=== PATIENT | male | born 1945 | race Caucasian/White ===

== ENCOUNTER → 2018-07-23 07:58 | Outpatient (CLI) | payer OTHER, SELFPAY ==
[2018-07-23 08:56] LABS: Cholesterol 184 mg/dL (140-199); HDL Cholesterol 47 mg/dL (40-60); LDL Cholesterol Calculated 116 mg/dL (<100); Triglycerides 103 mg/dL (35-150)
[2018-07-23 09:28] LABS: Prostate Specific Antigen < 0.064 ng/mL (0.10-4.00)
[2018-07-23 09:34] LABS: Thyroid Stimulating Hormone 2.36 uIU/mL (0.47-4.68)
== END ==
PROVIDERS: PCP Family Medicine; Visit Provider Family Medicine
DX: E78.5 Hyperlipidemia, unspecified (principal); E03.9 Hypothyroidism, unspecified; C61 Malignant neoplasm of prostate
CPT/HCPCS: 36415; 80061; 84153; 84443

== ENCOUNTER → 2019-06-08 09:26 | Outpatient (CLI) | payer OTHER, SELFPAY ==
[2019-06-08 10:05] LABS: Add Manual Diff / Slide Review NO; Basophils Absolute Auto 0 /uL (0-100); Basophils Percent Auto 0.5 % (0-2); Eosinophils Absolute Auto 200 /uL (0-450); Eosinophils Percent Auto 2.6 % (2-4); Hemoglobin 14.3 g/dL (13.5-17.5); Lymphocytes Absolute Auto 2100 /uL (1100-4500); Lymphocytes Percent Auto 31.8 % (25-40); Mean Corpuscular HGB Conc 33.3 % (30-36); Mean Corpuscular Hemoglobin 29.3 PG (26-34); Mean Corpuscular Volume 87.9 fL (80-100); Monocytes Absolute Auto 500 /uL (0-900); Monocytes Percent Auto 7.7 % (3-14); Neutrophils Absolute Auto 3800 /uL (1500-7000); Neutrophils Percent Auto 57.4 % (50-75); Platelet Count 278 X10^3/uL (150-400); Red Cell Distribution Width 18.1 % (11.6-14.8); White Blood Cell Count 6.7 X10^3/uL (4.5-11.0)
[2019-06-08 10:29] LABS: Alanine Aminotransferase 22 IU/L (21-72); Albumin 4.5 g/dL (3.5-5.0); Albumin Globulin Ratio 1.6 (1.0-2.8); Alkaline Phosphatase 79 U/L (38-126); Aspartate Aminotransferase 24 IU/L (17-59); Bilirubin Total 0.5 mg/dL (0.2-1.3); Blood Urea Nitrogen 18 mg/dL (9-20); Calcium 10.1 mg/dL (8.4-10.2); Carbon Dioxide 29 mmol/L (22-32); Chloride 101 mmol/L (98-107); Estimated Glomerular Filt Rate > 60.0 mL/min (>60); Globulin 2.9 g/dL (1.7-4.1); Glucose 106 mg/dL (80-110); HEMOLYSIS < 15 (0-50); Potassium 4.2 mmol/L (3.4-5.1); Sodium 140 mmol/L (137-145); Total Protein 7.4 g/dL (6.3-8.2)
[2019-06-10 17:02] LABS: PSA Post Prostatectomy <0.02 ng/mL
== END ==
PROVIDERS: PCP Family Medicine; Visit Provider Family Medicine
DX: R53.83 Other fatigue (principal); Z85.46 Personal history of malignant neoplasm of prostate
CPT/HCPCS: 36415; 80053; 84153; 85025

== ENCOUNTER → 2019-07-26 07:47 | Outpatient (CLI) | payer OTHER, SELFPAY ==
[2019-07-26 09:12] LABS: Alanine Aminotransferase 26 IU/L (21-72); Albumin 4.6 g/dL (3.5-5.0); Albumin Globulin Ratio 1.4 (1.0-2.8); Alkaline Phosphatase 70 U/L (38-126); Aspartate Aminotransferase 36 IU/L (17-59); BUN Creatinine Ratio 17.8 (6-22); Bilirubin Total 0.6 mg/dL (0.2-1.3); Blood Urea Nitrogen 16 mg/dL (9-20); Calcium 9.8 mg/dL (8.4-10.2); Carbon Dioxide 32 mmol/L (22-32); Chloride 100 mmol/L (98-107); Cholesterol 181 mg/dL (140-199); Estimated Glomerular Filt Rate > 60.0 mL/min (>60); Globulin 3.4 g/dL (1.7-4.1); Glucose 101 mg/dL (80-110); HDL Cholesterol 45 mg/dL (40-60); HEMOLYSIS < 15 (0-50); LDL Cholesterol Calculated 110 mg/dL (<100); Potassium 4.3 mmol/L (3.4-5.1); Sodium 141 mmol/L (137-145); Triglycerides 128 mg/dL (35-150)
== END ==
PROVIDERS: PCP Family Medicine; Visit Provider Family Medicine
DX: E78.5 Hyperlipidemia, unspecified (principal)
CPT/HCPCS: 36415; 80053; 80061

== ENCOUNTER 2019-08-15 12:00 | Day surgery (SDC) | payer MEDICARE, OTHER, SELFPAY ==
[2019-08-15] VITALS (10 sets, daily range): BP systolic 133–157; BP diastolic 88–113; PULSE 62–76; RESP 8–16; TEMP 36.6–37.1; O2SAT 95–100; BMI 30.6
[2019-08-15] MEDS: SODIUM CHLORIDE 0.9% 1,000 ML 200 ML IV (12:38)
--- NOTE | 2019-08-15 12:46 | PM.HP.1 ---
History of Present Illness History of Present Illness Date Patient Seen: 08/15/19 Time Patient Seen: 12:47 Chief complaint: [id number] SCREENING COLONOSCOPY Narrative: This is a 74-year-old man here for screening colonoscopy. His prior colonoscopy was over 5 years ago, and he was instructed by his primary doctor to have a repeat colonoscopy at this time. I do not have the record from his prior colonoscopy, but it sounds like he had polyps found on his prior procedure. He denies any current symptoms of rectal bleeding or melena, but he has chronic constipation. He is otherwise well and denies any chest pain, or shortness of breath, or other acute symptoms. Patient History Medical History Anemia (Chronic 2011) Ankle pain (Chronic 1966) Depression (Chronic 1969) Elevated PSA (Resolved 2014) Hemorrhoids (Resolved 1989) Hypothyroidism (Chronic 1994) Prostate cancer (Chronic 2014) Sleep apnea (Chronic 1989) Surgical History Anesthesia (Resolved) No history of previous surgery (Resolved) Family History Brother Colorectal cancer Brother No problems noted. Father No problems noted. Mother Emphysema lung Sister No problems noted. Sister No problems noted. Social History household members: spouse Smoking Status: Never smoker Family & Social History Family History Brother Colorectal cancer Brother No problems noted. Father No problems noted. Mother Emphysema lung Sister No problems noted. Sister No problems noted. Social History: household members spouse Tobacco & Substance use: Smoking Status Never smoker Meds Home Medications and Allergies Home Medications Medication Instructions Recorded Confirmed Type multivitamin [Multiple Vitamins] 1 tab PO QDAY #0 02/17/17 08/15/19 History lisinopril 20 mg tablet 20 mg PO DAILY #90 tab 05/30/19 08/15/19 Rx rosuvastatin 20 mg tablet 20 mg PO DAILY #90 tab 05/30/19 08/15/19 Rx duloxetine 60 mg capsule,delayed 60 mg PO DAILY #14 cap 08/07/19 08/15/19 Rx release levothyroxine 100 mcg tablet 100 mcg PO QAM #90 tab 08/07/19 08/15/19 Rx aripiprazole 2 mg PO DAILY 08/15/19 08/15/19 History Allergies Allergy/AdvReac Type Severity Reaction Status Date / Time No Known Allergies Allergy Verified 08/15/19 12:18 Review of Systems Review of Systems Narrative: All systems reviewed and otherwise unremarkable except as noted in HPI Exam Vital Signs (past 8 hours): - 08/15/19 12:35 Temperature 97.8 F Pulse Rate 62 Respiratory Rate 12 Blood Pressure 157/88 H Pulse Oximetry 95 Oxygen Delivery Method Room Air Narrative Exam Narrative: GENERAL: Well groomed and cooperative. Appears stated age. Answers questions promptly and appropriately. Vital signs noted. HENT: Normocephalic, atraumatic. Hearing intact. Oral mucosa is pink and moist. EYES: Conjunctiva pink, sclera white, no periorbital swelling. CARDIOVASCULAR: Regular rate. No pedal edema. RESPIRATORY: Normal respiratory rate, breathing comfortably on room air. GASTROINTESTINAL: Abdomen soft and non-distended MUSCULOSKELETAL: Normal coordination. Equal tone and mass bilaterally. SKIN: Warm, dry, soft, appropriate color for ethnicity. No other lesions, rashes, or wounds. NEURO: Alert and Oriented X 3. Good coordination. No gross sensory deficits, or cognitive issues. PSYCH: Appropriate affect and mood. Assessment & Plan Assessment and plan (1) Constipation: Current visit: Yes Status: Acute (2) Abnormal colonoscopy: Current visit: Yes Status: Acute Assessment & Plan narrative: Patient is here for a surveillance colonoscopy. He was instructed by his primary doctor to come in for follow-up colonoscopy as it has been more than 5 years since his prior scope, which was apparently abnormal. Risks and benefits of the procedure were described to the patient, including risk of bleeding and perforation, need for additional procedures. Patient desires to proceed with colonoscopy. Plan: Colonoscopy with possible biopsy Quality VTE Deep Vein Thrombosis/Pulmonary Embolism Present on Admission: No
[2019-08-15] MEDS: SILVER NITRATE STICK 2 EACH TOP (13:56)
[2019-08-15] MEDS: fentaNYL 250 MCG/5 ML INJ IV (13:57)
--- NOTE | 2019-08-15 13:58 | PM.OP.ENDO ---
Operative Date/Time/Diagnoses Date of procedure: 08/15/19 Time of procedure: 13:58 Pre-op diagnosis: constipation, history of abnormal colonoscopy Post-op diagnosis: other (Large internal/external hemorrhoids; tortuous colon) Procedure & Clinicians Study performed: Colonoscopy to splenic flexure; hemostasis of internal/external hemorrohids with silver nitrate Same procedure as scheduled: Yes Indications: Patient with history of colonoscopy over five years ago, recommended by PCP to have repeat colonoscopy at this time. I do not have a note from his prior procedure. Surgeon: Ngoc Cruz Procedure Notes SCOAP/Timeout: performed Procedure in detail: Patient brought to the room and placed in left lateral decubitus position with all bony prominences padded. A time-out was performed and then the patient has been under sedation starting with 4 mg of Versed and 100 mg of fentanyl. Vitals were monitored throughout the procedure and remained stable. Once adequately sedated the procedure was begun a rectal exam was performed revealing internal and external hemorrhoids. The colonoscope was then introduced to the rectum and advanced to the hepatic flexure. The the colon was tortuous and floppy, and I was unable to get all the way to the cecum even though I advanced the scope all the way to the Hilt. The patient had difficulty tolerating the procedure,l even with 14mg of Versed and 400 mcg of fentanyl. The scope was then retracted in the usual fashion rotating side to side and examining each mucosal fold. At the conclusion procedure retroflexion was performed large grade 2-3 internal and external hemorrhoids with active bleeding was seen. The hemorrhoids were very large were confluent including internal and external circumferential anoderm. I took a look with a lighted anoscope, but there was really no appropriate role for banding, as this patient needs a surgical hemorrhoidectomy. I was able to achieve hemostasis using silver nitrate. I placed a large rolled Gelfoam covered with Nupercaine inside the rectum. Following that the scope was withdrawn from the rectum the procedure was concluded the patient tolerated the procedure well was transferred to the PACU in stable condition. Scope withdrawal time: 18 Sedation minutes: 56 (Total sedation given 14 mg of Versed, 400 micrograms of fentanyl) Findings: internal hemorrhoids Specimen(s): none sent Impression: Floppy tortuous colon, large internal/external circumferential hemorrhoids which bled during the procedure. Patient will need colonoscopy with with monitored anesthesia care by anesthesiologist, or general anesthesia in order to tolerate the procedure. Post-procedure Plan for aftercare: Repeat colonoscopy after hemorrhoids have been treated. Follow up: weeks (Follow-up in 2 weeks in the office to discuss hemorrhoid surgery.) Disposition: PACU
[2019-08-15] MEDS: MIDAZOLAM 5 MG/5 ML VIAL IV (13:59)
[2019-08-15] MEDS: DIBUCAINE 1% OINT 28 GM 1 APPLIC TOP (13:59)
--- NOTE | 2019-08-15 14:03 | SUR.OPER ---
Hemorrhoid banding set used as a light source only, no bands used.
--- NOTE | 2019-08-15 14:37 | SUR.PHASEII ---
patient arrived in PACU very somnolent, but arouses to loud voice. Denies nausea/pain. No bleeding from rectum.
--- NOTE | 2019-08-15 14:52 | SUR.PHASEII ---
Call light given, continuous pulse oximeter given. Pt very drowsy, arouses easily.
--- NOTE | 2019-08-15 15:52 | SUR.PHASEII ---
Dr. Cruz talking w/patient & spouse. Pt sitting up, talking, has maintained sat in mid to upper 90s throughout OPD stay w/o continuous pulse ox alarm. Taking fluids well.
--- NOTE | 2019-08-15 16:32 | SUR.PHASEII ---
1618 Stable upon discharge, no dizziness, light-headedness, able to move freely. Instructions reviewed as well as given by dr. Dunaway questions.
== END 2019-08-15 16:18 | disposition home or self-care (01) ==
PROVIDERS: Family Provider Family Medicine; PCP Family Medicine; Visit Provider Surgery
PROC: 0DJD8ZZ Inspection of Lower Intestinal Tract, Via Natural or Artificial Opening Endoscopic (ICD-10-PCS; CPT 45378; principal; 2019-08-15 13:00)
DX: Z12.11 Encounter for screening for malignant neoplasm of colon (principal); Z53.09 Procedure and treatment not carried out because of other contraindication; K64.1 Second degree hemorrhoids; K64.9 Unspecified hemorrhoids
CPT/HCPCS: 46614; G0121; J2250; J3010

== ENCOUNTER → 2019-10-11 11:14 | Outpatient (CLI) | payer MEDICARE, OTHER, SELFPAY ==
[2019-10-11 13:00] LABS: Thyroid Stimulating Hormone 0.95 uIU/mL (0.47-4.68)
== END ==
PROVIDERS: PCP Family Medicine; Visit Provider Family Medicine
DX: E03.9 Hypothyroidism, unspecified (principal)
CPT/HCPCS: 36415; 84443

== ENCOUNTER → 2021-04-18 10:32 | Outpatient (CLI) | payer MEDICARE, OTHER, SELFPAY ==
[2021-04-18 12:19] LABS: Add Manual Diff / Slide Review NO; Basophils Absolute Auto 0 /uL (0-100); Basophils Percent Auto 0.6 % (0-2); Eosinophils Absolute Auto 200 /uL (0-450); Eosinophils Percent Auto 2.4 % (2-4); Hematocrit 44.1 % (41-53); Hemoglobin 15.1 g/dL (13.5-17.5); Lymphocytes Absolute Auto 2400 /uL (1100-4500); Lymphocytes Percent Auto 35.2 % (25-40); Mean Corpuscular HGB Conc 34.2 % (30-36); Mean Corpuscular Hemoglobin 31.2 PG (26-34); Mean Corpuscular Volume 91.3 fL (80-100); Monocytes Absolute Auto 700 /uL (0-900); Monocytes Percent Auto 10.2 % (3-14); Neutrophils Absolute Auto 3500 /uL (1500-7000); Neutrophils Percent Auto 51.6 % (50-75); Platelet Count 268 X10^3/uL (150-400); Red Blood Cell Count 4.84 X10^6/uL (4.5-5.9); Red Cell Distribution Width 14.3 % (11.6-14.8); White Blood Cell Count 6.8 X10^3/uL (4.5-11.0)
[2021-04-18 12:31] LABS: Alanine Aminotransferase 19 IU/L (<50); Albumin 4.6 g/dL (3.5-5.0); Albumin Globulin Ratio 1.4 (1.0-2.8); Alkaline Phosphatase 68 U/L (38-126); Aspartate Aminotransferase 29 IU/L (17-59); BUN Creatinine Ratio 16.8 (6-22); Bilirubin Total 0.7 mg/dL (0.2-1.3); Blood Urea Nitrogen 16 mg/dL (9-20); Calcium 10.7 mg/dL (8.4-10.2); Carbon Dioxide 29 mmol/L (22-32); Chloride 100 mmol/L (98-107); Cholesterol 262 mg/dL (140-199); Estimated Glomerular Filt Rate > 60.0 mL/min (>60); Globulin 3.4 g/dL (1.7-4.1); Glucose 91 mg/dL (80-110); HDL Cholesterol 48 mg/dL (40-60); HEMOLYSIS < 15 (0-50); LDL Cholesterol Calculated 182 mg/dL (<100); Potassium 4.6 mmol/L (3.4-5.1); Sodium 138 mmol/L (137-145); Triglycerides 159 mg/dL (35-150)
[2021-04-18 12:32] LABS: Creatinine Urine Random 19.7 mg/dL
[2021-04-18 12:35] LABS: Microalbumi Creatinin Ratio Ur 35.5 ug/mg CR (<30); Microalbumin Urine Random 0.7 mg/dL (0-1.6)
[2021-04-18 13:01] LABS: Thyroid Stimulating Hormone 1.45 uIU/mL (0.47-4.68)
[2021-04-18 13:04] LABS: Prostate Specific Antigen < 0.064 ng/mL (0.10-4.00)
== END ==
PROVIDERS: PCP Family Medicine; Referring Provider Family Medicine; Visit Provider Family Medicine
DX: I10 Essential (primary) hypertension (principal); C61 Malignant neoplasm of prostate; E03.9 Hypothyroidism, unspecified; E78.5 Hyperlipidemia, unspecified; Z90.79 Acquired absence of other genital organ(s)
CPT/HCPCS: 36415; 80053; 80061; 82043; 82570; 84153; 84443; 85025

== ENCOUNTER → 2021-06-25 08:43 | Outpatient (CLI) | payer MEDICARE, OTHER, SELFPAY ==
--- NOTE | 2021-06-25 08:44 | DI.ECHO.S_ITS ---
[place] [facility]---------+ [facility] +---------+ : : [address] : : : : [id number] : : : : Phone: [phone] Echocardiogram Report + + :Name: KEV EWING Study Date: 06/25/2021 Height: 70 in : :[facility] ReadingLocation: Weight: 220 lb : : Gender: Male BSA: 2.2 m2 : :: 1945 Age: 76 yrs BP: 155/97 mmHg: :Reason For Study: EVALUATE CARDIAC FUNCTION : :Ordering Physician: NICOLE, : :KEV Performed By: Lisa Harper : :Referring: KEV RIVERA : + + Interpretation Summary The left ventricle is normal in size. Left ventricular systolic function appears normal without focal wall motion abnormalities. The ejection fraction is estimated to be 60-65%. Diastolic parameters suggest a relaxation abnormality of the left ventricle, consistent with probable normal filling pressures. The right ventricle is normal in size and function. The right ventricular systolic pressure is estimated to be at least 31 mmHg based on an estimated right atrial pressure of 3 mm Hg. The left atrium is mildly dilated. Right atrial size is normal. There is mild mitral regurgitation. There is mild to moderate tricuspid regurgitation. The ascending aorta is mild-moderately enlarged. Procedure: A two-dimensional transthoracic echocardiogram with color flow and Doppler was performed. The study quality was technically adequate. There is no prior echocardiogram noted for this patient. The patient was in sinus bradycardia with heart rates between 53-64 bpm during the exam. The patient had occasional PACs during the exam. Left Ventricle: The left ventricle is normal in size. Left ventricular wall thickness is borderline increased. Left ventricular systolic function appears normal without focal wall motion abnormalities. The ejection fraction is estimated to be 60-65%. Diastolic parameters suggest a relaxation abnormality of the left ventricle, consistent with probable normal filling pressures. Right Ventricle: The right ventricle is normal in size and function. Atria: The left atrium is mildly dilated. Right atrial size is normal. There is no Doppler evidence for an interatrial shunt. Mitral Valve: The mitral valve leaflets appear borderline thickened, but open well. There is mild mitral regurgitation. Aortic Valve: The aortic valve is trileaflet. The aortic valve opens well. There is no aortic valve stenosis. No aortic regurgitation is present. Tricuspid Valve: The tricuspid valve is normal in structure and function. There is mild to moderate tricuspid regurgitation. The right ventricular systolic pressure is estimated to be at least 31 mmHg based on an estimated right atrial pressure of 3 mm Hg. Pulmonic Valve: The pulmonic valve leaflets are thin and pliable; valve motion is normal. There is no pulmonic valvular regurgitation. Great Vessels: The aortic root is normal size. The ascending aorta is mild- moderately enlarged. The IVC is of normal diameter and collapses greater than 50% with a sniff. This suggests a low right atrial pressure of 3 mm Hg. Pericardium/ Pleura There is no pericardial effusion. There is no pleural effusion. MMode/2D Measurements & Calculations LVIDd: 4.3 cm LVOT diam: 2.1 cm LVIDs: 3.2 cm Ao root diam: 3.7 cm FS: 25.9 % asc Aorta Diam: 4.1 cm IVSd: 1.2 cm Ao Arch Diam (Prox Trans): 3.5 cm LVPWd: 0.96 cm LV howell. diameter/BSA (cm/m^2): 2.0 LV sys. diameter/BSA (cm/m^2): 1.5 LA A2 area: 24.6 cm2 RA long axis: 5.5 cm LA A4 area: 21.3 cm2 RA area: 19.4 cm2 LA length (vol): 5.4 cm RA vol: 57.7 ml LA vol: 82.7 ml RA : 26.5 ml/m2 LA vol index: 38.0 ml/m2 IVC diam: 1.9 cm RVD1 (basal): 3.4 cm TAPSE: 2.2 cm Doppler Measurements & Calculations Ao V2 max: 126.8 cm/sec LVOT Max Steve: 87.4 cm/sec Ao V2 mean: 87.6 cm/sec LV V1 max P.1 mmHg Ao max P.5 mmHg LV V1 VTI: 19.2 cm Ao mean P.4 mmHg JONATHAN(I,D): 2.7 cm2 Ao V2 VTI: 26.3 cm JONATHAN(V,D): 2.5 cm2 sev ratio: 0.73 JONATHAN indexed to BSA (cm^2/m^2): 1.2 MV E max steve: 60.2 cm/sec TR max steve: 265.4 cm/sec MV A max steve: 74.8 cm/sec TR max P.2 mmHg MV E/A: 0.80 PA V2 max: 96.9 cm/sec Med Peak E' Steve: 4.9 cm/sec PA V2 mean: 66.1 cm/sec E/E' med: 12.3 PA mean P.9 mmHg Lat Peak E' Steve: 6.9 cm/sec PA pr(Accel): 43.0 mmHg E/E' lat: 8.7 E/e' average: 10.5 MV dec time: 0.25 sec SV(LVOT): 69.7 ml Reading Physician:06:20 PM
== END ==
PROVIDERS: PCP Family Medicine; Referring Provider Family Medicine; Visit Provider Family Medicine
DX: I08.1 Rheumatic disorders of both mitral and tricuspid valves (principal); I77.89 Other specified disorders of arteries and arterioles; R53.82 Chronic fatigue, unspecified
CPT/HCPCS: 93306

== ENCOUNTER → 2021-11-25 15:58 | Outpatient (CLI) | payer MEDICARE, OTHER, SELFPAY ==
--- NOTE | 2021-11-25 16:13 | DI.RAD.S_ITS ---
PROCEDURE: XR KNEE LT 3V INDICATIONS: left knee pain TECHNIQUE: 3 views of the knee were acquired. COMPARISON: None. FINDINGS: Bones: No fractures or dislocations. No suspicious bony lesions. Mild tricompartmental osteoarthritis. Soft tissues: No joint effusion. No suspicious soft tissue calcifications. IMPRESSION: No fracture. No acute osseous lesion. If symptoms and/or clinical suspicion for pathology persists, further assessment with repeat radiographs (7-10 days) or advanced imaging (e.g. CT, MRI or bone scan) should be considered. Dictated by: Rosemary Rice MD, PhD on 11/25/2021 at 16:56 Approved by: Rosemary Rice MD, PhD on 11/25/2021 at 16:57
[2021-11-25 17:54] LABS: Alanine Aminotransferase 18 IU/L (<50); Albumin 4.6 g/dL (3.5-5.0); Albumin Globulin Ratio 1.3 (1.0-2.8); Alkaline Phosphatase 65 U/L (38-126); Aspartate Aminotransferase 30 IU/L (17-59); Bilirubin Total 0.6 mg/dL (0.2-1.3); Blood Urea Nitrogen 15 mg/dL (9-20); Calcium 9.7 mg/dL (8.4-10.2); Carbon Dioxide 28 mmol/L (22-32); Chloride 104 mmol/L (98-107); Cholesterol 285 mg/dL (140-199); Estimated Glomerular Filt Rate > 60.0 mL/min (>60); Globulin 3.5 g/dL (1.7-4.1); Glucose 97 mg/dL (80-110); HDL Cholesterol 37 mg/dL (40-60); HEMOLYSIS 20 (0-50); LDL Cholesterol Calculated 193 mg/dL (<100); Sodium 139 mmol/L (137-145); Total Protein 8.1 g/dL (6.3-8.2); Triglycerides 273 mg/dL (35-150)
[2021-11-25 18:19] LABS: TSH w/ Reflex to FT4 2.24 uIU/mL (0.47-4.68)
== END ==
PROVIDERS: PCP Family Medicine; Referring Provider Family Medicine; Visit Provider Family Medicine
DX: E03.9 Hypothyroidism, unspecified (principal); E78.5 Hyperlipidemia, unspecified; I10 Essential (primary) hypertension; M25.562 Pain in left knee; R53.82 Chronic fatigue, unspecified
CPT/HCPCS: 36415; 73562; 80053; 80061; 84443

== ENCOUNTER → 2023-02-01 13:28 | Outpatient (CLI) | payer MEDICARE, OTHER, SELFPAY ==
--- NOTE | 2023-02-01 13:30 | DI.RAD.S_ITS ---
PROCEDURE: XR KNEE LT 3V INDICATIONS: L knee pain TECHNIQUE: 3 views of the knee were acquired. COMPARISON: [facility], CR, XR KNEE LT 3V, 11/25/2021, 16:06. FINDINGS: Bones: No fractures or dislocations. No suspicious bony lesions. Mild narrowing of the medial femorotibial joint and tricompartmental periarticular osteophyte formation. Soft tissues: Small joint effusion. No suspicious soft tissue calcifications. Chondrocalcinosis. Vascular calcifications indicate atherosclerosis. IMPRESSION: 1. 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 2. Chondrocalcinosis. Differential diagnosis includes but is not limited to hemochromatosis, hyperparathyroidism and CPPD. Dictated by: Hammad Truong [facility] Interpreted: Joseph Dudley MD on 02/01/2023 at 13:55 Transcribed by: GIGI on 02/01/2023 at 13:56 Approved by: Boubacar Dudley M.D. on 02/01/2023 at 16:50
== END ==
PROVIDERS: PCP Family Medicine; Referring Provider Family Medicine; Visit Provider Family Medicine
DX: M17.12 Unilateral primary osteoarthritis, left knee (principal); M11.262 Other chondrocalcinosis, left knee; M25.562 Pain in left knee
CPT/HCPCS: 73562

== ENCOUNTER 2023-04-13 12:11 | Observation (INO) | payer MEDICARE, OTHER, SELFPAY ==
[2023-04-13] VITALS (35 sets, daily range): BP systolic 120–234; BP diastolic 57–112; PULSE 54–99; RESP 14–41; TEMP 36.3–37.3; O2SAT 94–100; BMI 34.0; BMI 32.7
[2023-04-13 13:09] LABS: Add Manual Diff / Slide Review NO; Basophils Absolute Auto 0 /uL (0-100); Basophils Percent Auto 0.4 % (0-2); Eosinophils Absolute Auto 200 /uL (0-450); Eosinophils Percent Auto 1.9 % (2-4); Hematocrit 21.9 % (41-53); Lymphocytes Absolute Auto 1600 /uL (1100-4500); Lymphocytes Percent Auto 20.2 % (25-40); Mean Corpuscular HGB Conc 30.7 % (30-36); Mean Corpuscular Hemoglobin 20.4 PG (26-34); Mean Corpuscular Volume 66.7 fL (80-100); Monocytes Absolute Auto 600 /uL (0-900); Monocytes Percent Auto 7.5 % (3-14); Neutrophils Absolute Auto 5700 /uL (1500-7000); Platelet Count 319 X10^3/uL (150-400); Red Blood Cell Count 3.28 X10^6/uL (4.5-5.9); Red Cell Distribution Width 23.3 % (11.6-14.8); White Blood Cell Count 8.2 X10^3/uL (4.5-11.0)
[2023-04-13 13:11] LABS: Hemoglobin 6.7 g/dL (13.5-17.5)
--- NOTE | 2023-04-13 13:11 | ED.GIBLEED ---
HPI - GI Bleed General Chief complaint: GI Bleed Stated complaint: Fatigue, Dizzy, Nauseous, blood in BM, SOB Time Seen by Provider: 04/13/23 12:51 Source: patient Mode of arrival: Ambulatory History of Present Illness HPI Narrative: Patient is a 78-year-old male history of hypothyroid hemorrhoids presenting today with dizziness lightheadedness an ongoing rectal bleeding. He reports that he is even having some shortness of breath with exertion. He says that he is had ongoing rectal bleeding for a number of years he says almost every time he goes he has some bleeding. It is only become a problem in about the last week or so. He reports that eating ice chips helps. He has minimal abdominal pain no nausea vomiting or fever. No real chest pain. On antiplatelet or anticoagulation therapy. Related Data Previous Rx's Medication Instructions Recorded levothyroxine 100 mcg tablet 100 mcg PO DAILY #90 tabs 11/27/22 pravastatin 40 mg tablet 40 mg PO BEDTIME #90 tabs 11/27/22 Allergies Allergy/AdvReac Type Severity Reaction Status Date / Time No Known Allergies Allergy Verified 04/13/23 12:36 Patient History Medical History Abnormal colonoscopy Anemia (2011) Ankle pain (1966) Constipation Depression (1969) Elevated PSA (2014) Family history of colon cancer Hemorrhoids (1989) Hypothyroidism (1994) Left knee pain Prostate cancer (2014) Sleep apnea (1989) Well adult exam Surgical History Anesthesia No history of previous surgery S/P prostatectomy Family History Brother Colorectal cancer Brother No problems noted. Father No problems noted. Mother Emphysema lung Sister No problems noted. Sister No problems noted. Social History household members: spouse Smoking Status: Never smoker alcohol intake: current substance use type: marijuana Smoking Status: Never smoker alcohol intake frequency: 0-2 drinks per day Substance Use Type: does not use Exam Initial Vital Signs Initial Vital Signs: Vital Signs Temperature 98.1 F 04/13/23 12:31 Pulse Rate 75 04/13/23 12:31 Respiratory Rate 14 04/13/23 12:31 Blood Pressure 188/103 H 04/13/23 12:31 Pulse Oximetry 99 04/13/23 12:31 Oxygen Delivery Method Room Air 04/13/23 12:31 GENERAL: Alert pleasant 78-year-old, HEENT: Head atraumatic,EOMI, pupils reactive, face symmetric, moist mucous membranes CARDIOVASCULAR: Regular rate and rhythm without murmurs, rubs or gallops. RESPIRATORY: Breath sounds equal bilaterally, no wheezes rales or rhonchi. ABDOMEN: Soft, nontender. Normoactive bowel sounds all 4 quadrants. No guarding or rebound. No distention EXTREMITIES: Normal range of motion, no clubbing or edema. Neurovascularly intact NEUROLOGICAL: Alert and oriented x4. SKIN: Warm, dry, no laceration, no petechiae, no rashes or lesions. Not significantly pale Course Orders Ordered: ED Orders 04/13/23 12:45 BNP [NT-proBNP (BNP-Adult 18+)] Stat Complete Blood Count AUTO DIFF Stat Comprehensive Metabolic Panel Stat Lactate (Lactic Acid) Stat PRBC [Packed Cells] Stat PTT Partial Thromboplastin Tuan Stat Prothrombin Time INR Stat Troponin & CK Cardiac Panel Stat Type and Screen Stat 04/13/23 15:33 CT abdomen pelvis w con Stat 04/13/23 17:16 Consult to General Surgery Stat 04/14/23 05:00 Basic Metabolic Panel Routine Complete Blood Count AUTO DIFF Routine Acetaminophen (Acetaminophen 325 Mg Tablet) 650 mg PO Q6H PRN PRN Reason: Fever/Mild Pain (1-3) Ondansetron HCl (Ondansetron 4 Mg/2 Ml Inj) 4 mg IV Q8HR PRN PRN Reason: Nausea And Vomiting Pantoprazole Sodium (Pantoprazole 40 Mg Vial) 40 mg IV BID LESTER Discontinued Medications Ondansetron HCl (Ondansetron 4 Mg/2 Ml Inj) 4 mg IV NOW PRN PRN Reason: Nausea And Vomiting Ondansetron HCl (Ondansetron 4 Mg Odt) 4 mg SL NOW PRN PRN Reason: Nausea And Vomiting Pantoprazole Sodium (Pantoprazole 40 Mg Vial) 80 mg IV NOW ONE Stop: 04/13/23 12:38 Last Admin: 04/13/23 14:59 Dose: 80 mg Documented By: NR Vital Signs Vital signs: Vital Signs - 8 hr 04/13/23 12:31 04/13/23 14:11 04/13/23 14:14 Temperature 98.1 F Pulse Rate 75 99 H Respiratory Rate 14 Blood Pressure 188/103 H 182/87 H Pulse Oximetry 99 97 Oxygen Delivery Method Room Air 04/13/23 14:14 04/13/23 15:03 04/13/23 15:10 Temperature 98.7 F Pulse Rate 75 77 76 Respiratory Rate 17 16 23 Blood Pressure 192/88 H 165/83 H Pulse Oximetry 100 Oxygen Delivery Method 04/13/23 15:15 04/13/23 15:19 04/13/23 14:30 Temperature 98.4 F Pulse Rate 74 74 84 Respiratory Rate 21 24 32 H Blood Pressure 165/103 H 169/94 H Pulse Oximetry 100 Oxygen Delivery Method 04/13/23 14:31 04/13/23 14:31 04/13/23 14:32 Temperature Pulse Rate 81 Respiratory Rate 32 H Blood Pressure 234/103 H 231/112 H Pulse Oximetry 99 Oxygen Delivery Method 04/13/23 14:32 04/13/23 15:00 04/13/23 15:04 Temperature Pulse Rate 81 76 78 Respiratory Rate 41 H 26 H 28 H Blood Pressure Pulse Oximetry 97 99 100 Oxygen Delivery Method 04/13/23 15:04 04/13/23 15:05 04/13/23 15:05 Temperature Pulse Rate 77 Respiratory Rate 22 Blood Pressure 192/88 H 165/83 H Pulse Oximetry 99 Oxygen Delivery Method 04/13/23 15:10 04/13/23 15:10 04/13/23 15:15 Temperature Pulse Rate 77 Respiratory Rate 28 H Blood Pressure 160/92 H 165/103 H Pulse Oximetry 99 Oxygen Delivery Method 04/13/23 15:15 04/13/23 15:20 04/13/23 15:20 Temperature Pulse Rate 74 74 Respiratory Rate 22 21 Blood Pressure 169/94 H Pulse Oximetry 99 99 Oxygen Delivery Method 04/13/23 15:30 04/13/23 15:30 04/13/23 15:43 Temperature Pulse Rate 69 Respiratory Rate 17 Blood Pressure 161/77 H 160/74 H Pulse Oximetry 98 Oxygen Delivery Method 04/13/23 15:43 04/13/23 15:45 04/13/23 15:45 Temperature Pulse Rate 81 73 Respiratory Rate 19 18 Blood Pressure 160/97 H Pulse Oximetry 97 99 Oxygen Delivery Method 04/13/23 16:00 04/13/23 16:01 04/13/23 16:01 Temperature Pulse Rate 69 72 Respiratory Rate 26 H 29 H Blood Pressure 157/75 H Pulse Oximetry 99 98 Oxygen Delivery Method 04/13/23 16:15 04/13/23 16:15 04/13/23 16:30 Temperature Pulse Rate 71 Respiratory Rate 16 Blood Pressure 160/72 H 145/65 H Pulse Oximetry 98 Oxygen Delivery Method 04/13/23 16:30 04/13/23 16:45 04/13/23 16:45 Temperature Pulse Rate 79 85 Respiratory Rate 27 H 28 H Blood Pressure 170/69 H Pulse Oximetry 98 97 Oxygen Delivery Method Room Air 04/13/23 17:00 04/13/23 17:00 04/13/23 17:15 Temperature Pulse Rate 68 Respiratory Rate 16 Blood Pressure 157/72 H 181/75 H Pulse Oximetry 99 Oxygen Delivery Method 04/13/23 17:15 04/13/23 17:21 04/13/23 17:21 Temperature Pulse Rate 70 75 Respiratory Rate 22 23 Blood Pressure 183/105 H Pulse Oximetry 98 94 Oxygen Delivery Method MDM - GI Bleed Lab Data 04/13/23 12:45 04/13/23 12:45 Labs: Lab Results 04/13/23 04/13/23 04/13/23 Range/Units 12:45 12:45 12:45 WBC 8.2 (4.5-11.0) X10^3/uL RBC 3.28 L (4.5-5.9) X10^6/uL Hgb 6.7 L* (13.5-17.5) g/dL Hct 21.9 L (41-53) % MCV 66.7 L (80-100) fL MCH 20.4 L (26-34) PG MCHC 30.7 (30-36) % RDW 23.3 H (11.6-14.8) % Plt Count 319 (150-400) X10^3/uL Neut % (Auto) 70.0 (50-75) % Lymph % (Auto) 20.2 L (25-40) % [place] % (Auto) 7.5 (3-14) % Eos % (Auto) 1.9 L (2-4) % Baso % (Auto) 0.4 (0-2) % Neut # (Auto) 5700 (4514-2824) /uL Lymph # (Auto) 1600 (9488-3326) /uL [place] # (Auto) 600 (0-900) /uL Eos # (Auto) 200 (0-450) /uL Baso # (Auto) 0 (0-100) /uL RBC Morphology Not Reportable Poikilocytosis 1+ H Anisocytosis 2+ H PT 13.6 H (10.1-12.7) SECONDS INR 1.2 (0.9-1.3) APTT 29 (26-36) SECONDS Sodium 138 (137-145) mmol/L Potassium 3.8 (3.4-5.1) mmol/L Chloride 102 (98-107) mmol/L Carbon Dioxide 27 (22-32) mmol/L BUN 12 (9-20) mg/dL Creatinine 0.90 (0.66-1.25) mg/dL Estimated GFR > 60 (>60) mL/min BUN/Creatinine Ratio 13.3 (6-22) Glucose 94 (80-110) mg/dL Lactate (0.7-2.1) mmol/L Calcium 9.4 (8.4-10.2) mg/dL Total Bilirubin 0.6 (0.2-1.3) mg/dL AST 26 (17-59) IU/L ALT 16 (<50) IU/L Alkaline Phosphatase 68 (38-126) U/L Total Creatine Kinase 61 (55-170) U/L CK-MB (CK-2) TNP CK-MB (CK-2) Rel Index TNP Troponin I < 0.012 (0.01-0.034) ng/mL NT-Pro-B Natriuret Pep 114 (<450) pg/mL Total Protein 7.8 (6.3-8.2) g/dL Albumin 4.6 (3.5-5.0) g/dL Globulin 3.2 (1.7-4.1) g/dL Albumin/Globulin Ratio 1.4 (1.0-2.8) Blood Type Antibody Screen Crossmatch 04/13/23 04/13/23 Range/Units 12:45 12:45 WBC (4.5-11.0) X10^3/uL RBC (4.5-5.9) X10^6/uL Hgb (13.5-17.5) g/dL Hct (41-53) % MCV (80-100) fL MCH (26-34) PG MCHC (30-36) % RDW (11.6-14.8) % Plt Count (150-400) X10^3/uL Neut % (Auto) (50-75) % Lymph % (Auto) (25-40) % [place] % (Auto) (3-14) % Eos % (Auto) (2-4) % Baso % (Auto) (0-2) % Neut # (Auto) (2325-2831) /uL Lymph # (Auto) (1836-9225) /uL [place] # (Auto) (0-900) /uL Eos # (Auto) (0-450) /uL Baso # (Auto) (0-100) /uL RBC Morphology Poikilocytosis Anisocytosis PT (10.1-12.7) SECONDS INR (0.9-1.3) APTT (26-36) SECONDS Sodium (137-145) mmol/L Potassium (3.4-5.1) mmol/L Chloride (98-107) mmol/L Carbon Dioxide (22-32) mmol/L BUN (9-20) mg/dL Creatinine (0.66-1.25) mg/dL Estimated GFR (>60) mL/min BUN/Creatinine Ratio (6-22) Glucose (80-110) mg/dL Lactate 0.9 (0.7-2.1) mmol/L Calcium (8.4-10.2) mg/dL Total Bilirubin (0.2-1.3) mg/dL AST (17-59) IU/L ALT (<50) IU/L Alkaline Phosphatase (38-126) U/L Total Creatine Kinase (55-170) U/L CK-MB (CK-2) CK-MB (CK-2) Rel Index Troponin I (0.01-0.034) ng/mL NT-Pro-B Natriuret Pep (<450) pg/mL Total Protein (6.3-8.2) g/dL Albumin (3.5-5.0) g/dL Globulin (1.7-4.1) g/dL Albumin/Globulin Ratio (1.0-2.8) Blood Type O Positive Antibody Screen Negative Crossmatch See Detail Imaging Data CT scan - abdomen/pelvis: Radiologist's Impression: PROCEDURE:? CT ABDOMEN PELVIS W CON ? INDICATIONS:? GI bleed ? TECHNIQUE:? After the administration of IV contrast, axial sections were acquired from the lung bases to the pubic symphysis.? Coronal and sagittal reformats were performed.? For radiation dose reduction, the following was used:? automated exposure control, adjustment of mA and/or kV according to patient size. ? COMPARISON:? None. ? FINDINGS:? Image quality:? Excellent.? ? Lung bases:? Unremarkable.? ? Heart:? No significant findings. ? ? ABDOMEN: Liver:? No focal lesion.? ? Gallbladder:? Unremarkable.? ? Biliary ducts:? Unremarkable.? ? Pancreas:? Unremarkable.? ? Spleen:? Unremarkable.? ? Adrenal Glands:? No nodule. Kidneys and Ureters:? No hydronephrosis.? Small low-density right renal cysts.? ? ? Stomach and Bowel:? Stomach, small bowel loops, and colon are unremarkable.? Diverticulosis.? Normal appendix.? No contrast extravasation is seen. Peritoneum:? No abnormal intraperitoneal fluid.? No free air.? ? Ventral Wall: ? No hernia.? Abdominal Nodes:? No retroperitoneal or mesenteric adenopathy by size criteria.? Vessels:? Aorta and inferior vena cava are normal in size.? ? PELVIS: Pelvic Organs:? Prostate brachytherapy seeds.? ? Bladder:? No stones.? ? Pelvic Nodes: No enlarged lymph nodes.? Miscellaneous:? Fat containing right inguinal hernia.? Possible fat containing left inguinal hernia. ? Bones:? No aggressive appearing osseous lesion.? Subtle lucency at L3, ().? No sclerotic lesion is identified. ? ? IMPRESSION:? 1. No acute abnormality is identified. ? 2. Diverticulosis. ? 3. Prostate brachytherapy seeds.? No adenopathy.? ? 4. Subtle lucency at L3.? Low suspicion for metastatic disease.? Comparison with prior imaging would be helpful.? ? Dictated by: Nima Kirkpatrick M.D. on 04/13/2023 at 17:00 ? ? [facility] Narrative Medical decision making narrative: Patient is 78-year-old presenting today with a ongoing rectal bleeding he is found to be anemic with a hemoglobin of 6.7, hematocrit 21 hemodynamically stable. Family history of colon cancer attempted colonoscopy in 2019 unable to do so secondary to bleeding he has not had re-attempt recently. He is no abdominal pain CT abdomen is negative he is given 80 mg of Protonix. He overall appears comfortable nontoxic. 2 units of packed red blood cells are ordered Dr. Salmeron updated on patient's symptoms will kindly consult Dr. Zimmer, updated patient's symptoms test results Discharge Plan Departure Patient Disposition: Admitted as Observation Clinical Impression: Acute GI bleeding, Anemia Admit Date/Time: 04/13/23 17:21 Admit Provider: Fernando Zimmer
[2023-04-13 13:14] LABS: INR 1.2 (0.9-1.3); Prothrombin Time 13.6 SECONDS (10.1-12.7)
[2023-04-13 13:17] LABS: PTT Partial Thromboplastin Tim 29 SECONDS (26-36)
[2023-04-13 13:34] LABS: Alanine Aminotransferase 16 IU/L (<50); Albumin 4.6 g/dL (3.5-5.0); Albumin Globulin Ratio 1.4 (1.0-2.8); Alkaline Phosphatase 68 U/L (38-126); Aspartate Aminotransferase 26 IU/L (17-59); BUN Creatinine Ratio 13.3 (6-22); Bilirubin Total 0.6 mg/dL (0.2-1.3); Blood Urea Nitrogen 12 mg/dL (9-20); Calcium 9.4 mg/dL (8.4-10.2); Carbon Dioxide 27 mmol/L (22-32); Chloride 102 mmol/L (98-107); Creatine Kinase 61 U/L (55-170); Estimated Glomerular Filt Rate > 60 mL/min (>60); Globulin 3.2 g/dL (1.7-4.1); Glucose 94 mg/dL (80-110); HEMOLYSIS < 15 (0-50); Potassium 3.8 mmol/L (3.4-5.1); Sodium 138 mmol/L (137-145); Total Protein 7.8 g/dL (6.3-8.2)
[2023-04-13 13:35] LABS: Anisocytosis 2+; Lactate (Lactic Acid) 0.9 mmol/L (0.7-2.1); Poikilocytosis 1+
[2023-04-13 13:44] LABS: NT-proBNP (BNP-Adult 18+) 114 pg/mL (<450); Troponin I < 0.012 ng/mL (0.01-0.034)
[2023-04-13] MEDS: PANTOPRAZOLE 40 MG VIAL 80 MG IV (14:59)
--- NOTE | 2023-04-13 15:33 | DI.CT.S_ITS ---
PROCEDURE: CT ABDOMEN PELVIS W CON INDICATIONS: GI bleed TECHNIQUE: After the administration of IV contrast, axial sections were acquired from the lung bases to the pubic symphysis. Coronal and sagittal reformats were performed. For radiation dose reduction, the following was used: automated exposure control, adjustment of mA and/or kV according to patient size. COMPARISON: None. FINDINGS: Image quality: Excellent. Lung bases: Unremarkable. Heart: No significant findings. ABDOMEN: Liver: No focal lesion. Gallbladder: Unremarkable. Biliary ducts: Unremarkable. Pancreas: Unremarkable. Spleen: Unremarkable. Adrenal Glands: No nodule. Kidneys and Ureters: No hydronephrosis. Small low-density right renal cysts. Stomach and Bowel: Stomach, small bowel loops, and colon are unremarkable. Diverticulosis. Normal appendix. No contrast extravasation is seen. Peritoneum: No abnormal intraperitoneal fluid. No free air. Ventral Wall: No hernia. Abdominal Nodes: No retroperitoneal or mesenteric adenopathy by size criteria. Vessels: Aorta and inferior vena cava are normal in size. PELVIS: Pelvic Organs: Prostate brachytherapy seeds. Bladder: No stones. Pelvic Nodes: No enlarged lymph nodes. Miscellaneous: Fat containing right inguinal hernia. Possible fat containing left inguinal hernia. Bones: No aggressive appearing osseous lesion. Subtle lucency at L3, (4/47). No sclerotic lesion is identified. IMPRESSION: 1. No acute abnormality is identified. 2. Diverticulosis. 3. Prostate brachytherapy seeds. No adenopathy. 4. Subtle lucency at L3. Low suspicion for metastatic disease. Comparison with prior imaging would be helpful. Dictated by: Nima Kirkpatrick M.D. on 04/13/2023 at 17:00 Approved by: Nima Kirkpatrick M.D. on 04/13/2023 at 17:06
--- NOTE | 2023-04-13 18:07 | PM.HP.1 ---
History of Present Illness History of Present Illness Date Patient Seen: 04/13/23 Time Patient Seen: 17:00 Chief complaint: Fatigue, Dizzy, Nauseous, blood in BM, SOB Narrative: Mr. Silva is a 78M with H hypothyroidism, hemorrhoids, family history of colon cancer who presents to the hospital with weakness and blood in his stools. He notes he has had small amounts of blood in his stool for years. He attributes this to hemorrhoids. Within the last few weeks he has developed lightheadedness, shortness of breath. He notes his stool has changed from small amounts of bright red blood to darker, larger amounts of sometimes clotted blood. He has crampy abdominal pain. No nsaids. He does drink one alcoholic drink a night. He has no weight loss. His last colonoscopy was in 2019 and was unable to be advanced fully, and also noted to have significant internal and external hemorrhoids. In the ED workup was done, vitals notable for afebrile, heart rate 70s, blood pressure 180s/100s, sats 100% on room air. Labs reviewed and notable for wbc 8.2, hgb 6.7, plts 319. Creatinine 0.90. Inr 1.2. Trop negative. Lactate 0.9. CT abdomen reviewed by me and notable for diverticulosis and subtle L3 lucency. He was ordered for protonix and blood admitted for further treatment. [facility] Medical History Abnormal colonoscopy Anemia (2011) Ankle pain (1966) Constipation Depression (1969) Elevated PSA (2014) Family history of colon cancer Hemorrhoids (1989) Hypothyroidism (1994) Left knee pain Prostate cancer (2014) Sleep apnea (1989) Well adult exam Surgical History Anesthesia No history of previous surgery S/P prostatectomy Family History Brother Colorectal cancer Brother No problems noted. Father No problems noted. Mother Emphysema lung Sister No problems noted. Sister No problems noted. Social History household members: spouse Smoking Status: Never smoker alcohol intake: current substance use type: marijuana Meds Home Medications and Allergies Home Medications Medication Instructions Recorded Confirmed Type levothyroxine 100 mcg tablet 100 mcg PO DAILY #90 tabs 11/27/22 02/01/23 Rx pravastatin 40 mg tablet 40 mg PO BEDTIME #90 tabs 11/27/22 02/01/23 Rx Allergies Allergy/AdvReac Type Severity Reaction Status Date / Time No Known Allergies Allergy Verified 04/13/23 12:36 Review of Systems Review of Systems Narrative: 14 systems reviewed and negative aside from what is noted in HPI Exam Vital Signs (past 8 hours): - 04/13/23 12:31 04/13/23 14:11 04/13/23 14:14 Temperature 98.1 F Pulse Rate 75 99 H Respiratory Rate 14 Blood Pressure 188/103 H 182/87 H Pulse Oximetry 99 97 Oxygen Delivery Method Room Air 04/13/23 14:14 04/13/23 15:03 04/13/23 15:10 Temperature 98.7 F Pulse Rate 75 77 76 Respiratory Rate 17 16 23 Blood Pressure 192/88 H 165/83 H Pulse Oximetry 100 Oxygen Delivery Method 04/13/23 15:15 04/13/23 15:19 04/13/23 14:30 Temperature 98.4 F Pulse Rate 74 74 84 Respiratory Rate 21 24 32 H Blood Pressure 165/103 H 169/94 H Pulse Oximetry 100 Oxygen Delivery Method 04/13/23 14:31 04/13/23 14:31 04/13/23 14:32 Temperature Pulse Rate 81 Respiratory Rate 32 H Blood Pressure 234/103 H 231/112 H Pulse Oximetry 99 Oxygen Delivery Method 04/13/23 14:32 04/13/23 15:00 04/13/23 15:04 Temperature Pulse Rate 81 76 78 Respiratory Rate 41 H 26 H 28 H Blood Pressure Pulse Oximetry 97 99 100 Oxygen Delivery Method 04/13/23 15:04 04/13/23 15:05 04/13/23 15:05 Temperature Pulse Rate 77 Respiratory Rate 22 Blood Pressure 192/88 H 165/83 H Pulse Oximetry 99 Oxygen Delivery Method 04/13/23 15:10 04/13/23 15:10 04/13/23 15:15 Temperature Pulse Rate 77 Respiratory Rate 28 H Blood Pressure 160/92 H 165/103 H Pulse Oximetry 99 Oxygen Delivery Method 04/13/23 15:15 04/13/23 15:20 04/13/23 15:20 Temperature Pulse Rate 74 74 Respiratory Rate 22 21 Blood Pressure 169/94 H Pulse Oximetry 99 99 Oxygen Delivery Method 04/13/23 15:30 04/13/23 15:30 04/13/23 15:43 Temperature Pulse Rate 69 Respiratory Rate 17 Blood Pressure 161/77 H 160/74 H Pulse Oximetry 98 Oxygen Delivery Method 04/13/23 15:43 04/13/23 15:45 04/13/23 15:45 Temperature Pulse Rate 81 73 Respiratory Rate 19 18 Blood Pressure 160/97 H Pulse Oximetry 97 99 Oxygen Delivery Method 04/13/23 16:00 04/13/23 16:01 04/13/23 16:01 Temperature Pulse Rate 69 72 Respiratory Rate 26 H 29 H Blood Pressure 157/75 H Pulse Oximetry 99 98 Oxygen Delivery Method 04/13/23 16:15 04/13/23 16:15 04/13/23 17:23 Temperature 99.2 F Pulse Rate 71 72 Respiratory Rate 16 18 Blood Pressure 160/72 H 183/105 H Pulse Oximetry 98 Oxygen Delivery Method 04/13/23 16:30 04/13/23 16:30 04/13/23 16:45 Temperature Pulse Rate 79 Respiratory Rate 27 H Blood Pressure 145/65 H 170/69 H Pulse Oximetry 98 Oxygen Delivery Method 04/13/23 16:45 04/13/23 17:00 04/13/23 17:00 Temperature Pulse Rate 85 68 Respiratory Rate 28 H 16 Blood Pressure 157/72 H Pulse Oximetry 97 99 Oxygen Delivery Method Room Air 04/13/23 17:15 04/13/23 17:15 04/13/23 17:21 Temperature Pulse Rate 70 Respiratory Rate 22 Blood Pressure 181/75 H 183/105 H Pulse Oximetry 98 Oxygen Delivery Method 04/13/23 17:21 04/13/23 17:30 04/13/23 17:31 Temperature Pulse Rate 75 72 70 Respiratory Rate 23 24 23 Blood Pressure Pulse Oximetry 94 97 99 Oxygen Delivery Method Room Air 04/13/23 17:31 Temperature Pulse Rate Respiratory Rate Blood Pressure 152/83 H Pulse Oximetry Oxygen Delivery Method Oxygen Delivery Method Room Air Narrative Exam Narrative: GEN: no acute distress HEENT: pale conjunctiva CV: regular rate and rhythm, no murmurs PULM: clear bilaterally ABD: soft, nontender, nondistended, no murmurs EXT: warm and well perfused with no edema NEURO: awake, alert, oriented, no focal deficits Objective Labs 04/13/23 12:45 04/13/23 12:45 Labs: Laboratory Results - last 24 hr 04/13/23 04/13/23 04/13/23 12:45 12:45 12:45 WBC 8.2 RBC 3.28 L Hgb 6.7 L* Hct 21.9 L MCV 66.7 L MCH 20.4 L MCHC 30.7 RDW 23.3 H Plt Count 319 Neut % (Auto) 70.0 Lymph % (Auto) 20.2 L [place] % (Auto) 7.5 Eos % (Auto) 1.9 L Baso % (Auto) 0.4 Neut # (Auto) 5700 Lymph # (Auto) 1600 [place] # (Auto) 600 Eos # (Auto) 200 Baso # (Auto) 0 RBC Morphology Not Reportable Poikilocytosis 1+ H Anisocytosis 2+ H PT 13.6 H INR 1.2 APTT 29 Sodium 138 Potassium 3.8 Chloride 102 Carbon Dioxide 27 BUN 12 Creatinine 0.90 Estimated GFR > 60 BUN/Creatinine Ratio 13.3 Glucose 94 Lactate Calcium 9.4 Total Bilirubin 0.6 AST 26 ALT 16 Alkaline Phosphatase 68 Total Creatine Kinase 61 CK-MB (CK-2) TNP CK-MB (CK-2) Rel Index TNP Troponin I < 0.012 NT-Pro-B Natriuret Pep 114 Total Protein 7.8 Albumin 4.6 Globulin 3.2 Albumin/Globulin Ratio 1.4 Blood Type Antibody Screen Crossmatch 04/13/23 04/13/23 12:45 12:45 WBC RBC Hgb Hct MCV MCH MCHC RDW Plt Count Neut % (Auto) Lymph % (Auto) [place] % (Auto) Eos % (Auto) Baso % (Auto) Neut # (Auto) Lymph # (Auto) [place] # (Auto) Eos # (Auto) Baso # (Auto) RBC Morphology Poikilocytosis Anisocytosis PT INR APTT Sodium Potassium Chloride Carbon Dioxide BUN Creatinine Estimated GFR BUN/Creatinine Ratio Glucose Lactate 0.9 Calcium Total Bilirubin AST ALT Alkaline Phosphatase Total Creatine Kinase CK-MB (CK-2) CK-MB (CK-2) Rel Index Troponin I NT-Pro-B Natriuret Pep Total Protein Albumin Globulin Albumin/Globulin Ratio Blood Type O Positive Antibody Screen Negative Crossmatch See Detail Assessment & Plan Assessment & Plan narrative: 1. Acute GI bleed, blood loss anemia -etiology is not clear, possible from hemorrhoids, but suspect recent worsening could be upper or lower GI bleed -initial hgb in 6s -plan for transfusion of 2u, recheck hemoglobin in am -consult surgery for consideration of scope -npo after midnight -protonix IV BID 2. Hypothyroidism -hold synthroid tonight -likely restart tomorrow 3. Possible L3 lucency -will need follow up with PCP as outpatient I have discussed plan and obtained history from the patient. I have discussed plan of care with ED physician. I have reviewed labs, imaging. CODE: Full Proxy: Erin Geniacar, Quality [facility] - Med 'Current medications' to include all prescriptions, [id number] products, herbals, cannabis/cannabidiol products, and vitamin/mineral/dietary (nutritional) supplements. I have utilized all available resources to obtain, update, or review the patient?s current medications. [If Yes, STOP here]: Yes
[2023-04-13] MEDS: PANTOPRAZOLE 40 MG VIAL IV (21:24)
[2023-04-14 02:00] VITALS: O2SAT 96
[2023-04-14 04:35] VITALS: BP 137/75; PULSE 65; RESP 18; TEMP 36.4; O2SAT 97
[2023-04-14 06:29] LABS: Basophils Absolute Auto 100 /uL (0-100); Basophils Percent Auto 1.1 % (0-2); Eosinophils Absolute Auto 200 /uL (0-450); Eosinophils Percent Auto 3.9 % (2-4); Hemoglobin 8.7 g/dL (13.5-17.5); Lymphocytes Absolute Auto 1200 /uL (1100-4500); Lymphocytes Percent Auto 21.1 % (25-40); Mean Corpuscular HGB Conc 31.5 % (30-36); Mean Corpuscular Volume 69.7 fL (80-100); Monocytes Absolute Auto 600 /uL (0-900); Monocytes Percent Auto 9.8 % (3-14); Neutrophils Absolute Auto 3800 /uL (1500-7000); Neutrophils Percent Auto 64.1 % (50-75); Platelet Count 298 X10^3/uL (150-400); Red Blood Cell Count 3.95 X10^6/uL (4.5-5.9); Red Cell Distribution Width 24.8 % (11.6-14.8); White Blood Cell Count 5.9 X10^3/uL (4.5-11.0)
[2023-04-14 06:38] LABS: Add Manual Diff / Slide Review SLIDE REVIEW; Hematocrit 27.6 % (41-53)
[2023-04-14 07:04] LABS: BUN Creatinine Ratio 11.5 (6-22); Blood Urea Nitrogen 11 mg/dL (9-20); Calcium 9.2 mg/dL (8.4-10.2); Carbon Dioxide 29 mmol/L (22-32); Chloride 102 mmol/L (98-107); Estimated Glomerular Filt Rate > 60 mL/min (>60); Glucose 98 mg/dL (80-110); HEMOLYSIS < 15 (0-50); Potassium 3.8 mmol/L (3.4-5.1); Sodium 139 mmol/L (137-145)
[2023-04-14 07:29] LABS: Microcytosis 2+
[2023-04-14 07:31] LABS: Anisocytosis 2+; Hypochromasia 1+
[2023-04-14 07:47] VITALS: O2SAT 98
[2023-04-14 08:00] VITALS: BP 145/68; PULSE 57; RESP 20; TEMP 36.3; O2SAT 98
[2023-04-14] MEDS: PANTOPRAZOLE 40 MG VIAL IV (08:50)
--- NOTE | 2023-04-14 09:20 | PM.CN ---
History of Present Illness Consult details Date Patient Seen: 04/14/23 Time Patient Seen: 09:26 Chief complaint: Fatigue, Dizzy, Nauseous, blood in BM, SOB Narrative: Chace is a 78-year-old man who presented with orthostatic symptoms and profound anemia. He has received a blood transfusion with improvement in his symptoms. He states that he has always had bright red blood per rectum from what he believed was hemorrhoids. He had a colonoscopy attempt by Dr. Desouza in 2019 which was incomplete due to the tortuosity of his colon. He was noted at the time to have significant internal and external hemorrhoids that were bleeding during the procedure. It appears he never followed up for a repeat colonoscopy or hemorrhoidectomy. Federico reports that over the past year the rectal bleeding has turned to who more of dark clots rather than bright red bleeding. Meds Home Medications and Allergies Home Medications Medication Instructions Recorded Confirmed Type levothyroxine 100 mcg tablet 100 mcg PO DAILY #90 tabs 11/27/22 04/13/23 Rx pravastatin 40 mg tablet 40 mg PO BEDTIME #90 tabs 11/27/22 04/13/23 Rx Allergies Allergy/AdvReac Type Severity Reaction Status Date / Time No Known Allergies Allergy Verified 04/13/23 12:36 Exam Vital Signs (past 8 hours): - 04/14/23 04:35 04/14/23 02:00 04/14/23 07:47 Temperature 97.5 F L Pulse Rate 65 Respiratory Rate 18 Blood Pressure 137/75 Pulse Oximetry 97 96 98 Oxygen Delivery Method Room Air Room Air Oxygen Flow Rate 0 0 0 04/14/23 08:00 Temperature 97.3 F L Pulse Rate 57 L Respiratory Rate 20 Blood Pressure 145/68 H Pulse Oximetry 98 Oxygen Delivery Method Oxygen Flow Rate Oxygen Delivery Method Room Air Oxygen Flow Rate 0 Const Nutritional Appearance: obese Objective Labs 04/14/23 05:38 04/14/23 05:38 Labs: Laboratory Results - last 24 hr 04/13/23 04/13/23 04/13/23 12:45 12:45 12:45 WBC 8.2 RBC 3.28 L Hgb 6.7 L* Hct 21.9 L MCV 66.7 L MCH 20.4 L MCHC 30.7 RDW 23.3 H Plt Count 319 Neut % (Auto) 70.0 Lymph % (Auto) 20.2 L [place] % (Auto) 7.5 Eos % (Auto) 1.9 L Baso % (Auto) 0.4 Neut # (Auto) 5700 Lymph # (Auto) 1600 [place] # (Auto) 600 Eos # (Auto) 200 Baso # (Auto) 0 RBC Morphology Not Reportable Hypochromasia Poikilocytosis 1+ H Anisocytosis 2+ H Microcytosis PT 13.6 H INR 1.2 APTT 29 Sodium 138 Potassium 3.8 Chloride 102 Carbon Dioxide 27 BUN 12 Creatinine 0.90 Estimated GFR > 60 BUN/Creatinine Ratio 13.3 Glucose 94 Lactate Calcium 9.4 Total Bilirubin 0.6 AST 26 ALT 16 Alkaline Phosphatase 68 Total Creatine Kinase 61 CK-MB (CK-2) TNP CK-MB (CK-2) Rel Index TNP Troponin I < 0.012 NT-Pro-B Natriuret Pep 114 Total Protein 7.8 Albumin 4.6 Globulin 3.2 Albumin/Globulin Ratio 1.4 Blood Type Antibody Screen Crossmatch 04/13/23 04/13/23 04/14/23 12:45 12:45 05:38 WBC 5.9 RBC 3.95 L Hgb 8.7 L Hct 27.6 L MCV 69.7 L D MCH 22.0 L MCHC 31.5 RDW 24.8 H Plt Count 298 Neut % (Auto) 64.1 Lymph % (Auto) 21.1 L [place] % (Auto) 9.8 Eos % (Auto) 3.9 Baso % (Auto) 1.1 Neut # (Auto) 3800 Lymph # (Auto) 1200 [place] # (Auto) 600 Eos # (Auto) 200 Baso # (Auto) 100 RBC Morphology See below Hypochromasia 1+ H Poikilocytosis Anisocytosis 2+ H Microcytosis 2+ H PT INR APTT Sodium Potassium Chloride Carbon Dioxide BUN Creatinine Estimated GFR BUN/Creatinine Ratio Glucose Lactate 0.9 Calcium Total Bilirubin AST ALT Alkaline Phosphatase Total Creatine Kinase CK-MB (CK-2) CK-MB (CK-2) Rel Index Troponin I NT-Pro-B Natriuret Pep Total Protein Albumin Globulin Albumin/Globulin Ratio Blood Type O Positive Antibody Screen Negative Crossmatch See Detail 04/14/23 05:38 WBC RBC Hgb Hct MCV MCH MCHC RDW Plt Count Neut % (Auto) Lymph % (Auto) [place] % (Auto) Eos % (Auto) Baso % (Auto) Neut # (Auto) Lymph # (Auto) [place] # (Auto) Eos # (Auto) Baso # (Auto) RBC Morphology Hypochromasia Poikilocytosis Anisocytosis Microcytosis PT INR APTT Sodium 139 Potassium 3.8 Chloride 102 Carbon Dioxide 29 BUN 11 Creatinine 0.96 Estimated GFR > 60 BUN/Creatinine Ratio 11.5 Glucose 98 Lactate Calcium 9.2 Total Bilirubin AST ALT Alkaline Phosphatase Total Creatine Kinase CK-MB (CK-2) CK-MB (CK-2) Rel Index Troponin I NT-Pro-B Natriuret Pep Total Protein Albumin Globulin Albumin/Globulin Ratio Blood Type Antibody Screen Crossmatch [facility] Medical History Abnormal colonoscopy Anemia (2011) Ankle pain (1966) Constipation Depression (1969) Elevated PSA (2014) Family history of colon cancer Hemorrhoids (1989) Hypothyroidism (1994) Left knee pain Prostate cancer (2014) Sleep apnea (1989) Well adult exam Surgical History Anesthesia No history of previous surgery S/P prostatectomy Family History Brother Colorectal cancer Brother No problems noted. Father No problems noted. Mother Emphysema lung Sister No problems noted. Sister No problems noted. Social History household members: spouse Tobacco & Substance Use Smoking Status: Never smoker alcohol intake: current substance use type: marijuana Assessment & Plan Assessment and plan (1) Anemia: Status: Acute Plan I recommended we proceed with an EGD and colonoscopy tomorrow. Since his symptoms have improved after a blood transfusion I think it would be fine to proceed with this plan as an outpatient. He can proceed to [facility] office as soon as he is discharged to get scheduled for tomorrow's procedure and get the prep.
--- NOTE | 2023-04-14 16:37 | P.DS_ITS ---
History of Present Illness History of Present Illness Chief complaint: Fatigue, Dizzy, Nauseous, blood in BM, SOB Narrative: Mr. Silva is a 78M with PMH hypothyroidism, hemorrhoids, family history of colon cancer who presents to the hospital with weakness and blood in his stools. He notes he has had small amounts of blood in his stool for years. He attributes this to hemorrhoids. Within the last few weeks he has developed lightheadedness, shortness of breath. He notes his stool has changed from small amounts of bright red blood to darker, larger amounts of sometimes clotted blood. He has crampy abdominal pain. No nsaids. He does drink one alcoholic drink a night. He has no weight loss. His last colonoscopy was in 2019 and was unable to be advanced fully, and also noted to have significant internal and external hemorrhoids. In the ED workup was done, vitals notable for afebrile, heart rate 70s, blood pressure 180s/100s, sats 100% on room air. Labs reviewed and notable for wbc 8.2, hgb 6.7, plts 319. Creatinine 0.90. Inr 1.2. Trop negative. Lactate 0.9. CT abdomen reviewed by me and notable for diverticulosis and subtle L3 lucency. He was ordered for protonix and blood admitted for further treatment. Discharge Providers Provider Date of admission: 04/13/23 17:21 Discharge Date: 04/14/23 Primary care physician: Chace Montaño DO Consults: 04/13/23 17:16 Consult to General Surgery Stat Comment: Consulting Provider: Barber Salmeron Reason for consultation: gi bleed Has provider been notified: Yes Discharge provider: Fernando Zimmer MD Summary Hospital Course Discharge Diagnosis: 1. Symptomatic anemia from GI bleeding 2. History of hemorrhoids 3. Hypothyroidism 4. Questionable L3 spine lucency Hospital Course: Mr. Silva was admitted with chronic gi bleeding. He has a history of hemorrhoids previously. He had been bleeding with stools for over a year. He presented with weakness, lightheaded, short of breath. His hemoglobin was in the 6s. He was transfused and his symptoms improved and his hemoglobin improved to the 8s. He was started on iron due to his microcytic anemia. Discussion with surgeon and plan was to scope as an outpatient tomorrow to evaluate the source further. He had no bloody bowel movements in the hospital. On CT scan he had a questionable lucency in L3 spine. He should follow up with PCP with this. He had no symptoms. Exam Vital Signs (past 8 hours): Oxygen Delivery Method Room Air Oxygen Flow Rate 0 Narrative Exam Narrative: GEN: no acute distress HEENT: pale conjunctiva CV: regular rate and rhythm, no murmurs PULM: clear bilaterally ABD: soft, nontender, nondistended, no murmurs EXT: warm and well perfused with no edema NEURO: awake, alert, oriented, no focal deficits Objective Labs 04/14/23 05:38 04/14/23 05:38 Labs: Laboratory Results - last 24 hr 04/13/23 04/14/23 04/14/23 12:45 05:38 05:38 WBC 5.9 RBC 3.95 L Hgb 8.7 L Hct 27.6 L MCV 69.7 L D MCH 22.0 L MCHC 31.5 RDW 24.8 H Plt Count 298 Neut % (Auto) 64.1 Lymph % (Auto) 21.1 L [place] % (Auto) 9.8 Eos % (Auto) 3.9 Baso % (Auto) 1.1 Neut # (Auto) 3800 Lymph # (Auto) 1200 [place] # (Auto) 600 Eos # (Auto) 200 Baso # (Auto) 100 RBC Morphology See below Hypochromasia 1+ H Anisocytosis 2+ H Microcytosis 2+ H Sodium 139 Potassium 3.8 Chloride 102 Carbon Dioxide 29 BUN 11 Creatinine 0.96 Estimated GFR > 60 BUN/Creatinine Ratio 11.5 Glucose 98 Calcium 9.2 Blood Type O Positive Antibody Screen Negative Crossmatch See Detail [facility] Medical History Abnormal colonoscopy Anemia (2011) Ankle pain (1966) Constipation Depression (1969) Elevated PSA (2014) Family history of colon cancer Hemorrhoids (1989) Hypothyroidism (1994) Left knee pain Prostate cancer (2014) Sleep apnea (1989) Well adult exam Surgical History Anesthesia No history of previous surgery S/P prostatectomy Family History Brother Colorectal cancer Brother No problems noted. Father No problems noted. Mother Emphysema lung Sister No problems noted. Sister No problems noted. Social History household members: spouse Smoking Status: Never smoker alcohol intake: current substance use type: marijuana Discharge Plan Discharge Plan Patient Disposition: Home Provider Discharge Comment: Mr. Silva was admitted with gastrointestinal bleeding. His blood counts were low and he was given transfusion. He felt improved. He was started on iron to help his body produce more blood. He was started on pantoprazole which can help reduce bleeding amounts. He is planned for outpatient surgeon to see him tomorrow for scope. Discharge orders & Medications Prescriptions: New pantoprazole 40 mg tablet,delayed release (DR/EC) 40 mg PO BID Qty: 60 0RF ferrous sulfate [Iron (ferrous sulfate)] 325 mg (65 mg iron) tablet 325 mg PO BID Qty: 60 0RF Continued pravastatin 40 mg tablet 40 mg PO BEDTIME Qty: 90 3RF levothyroxine 100 mcg tablet 100 mcg PO DAILY Qty: 90 1RF No Action sodium,potassium,mag sulfates [Suprep Bowel Prep Kit] 17.5-3.13-1.6 gram recon soln See Rx Instructions PO .COMPLEX Qty: 354 0RF Rx Instructions: take as directed by Physician Follow up/Referrals: Orlando Ellis MD [Physician] - 1 Week (GI bleeding) Chace Montaño DO [Primary Care Provider] - 2 Weeks (GI bleeding, hospitalized) Diet/Activity/Treatments Diet: Regular Visit Report/Discharge Packet Stand Alone Forms: Patient Portal/API, Stroke Signs & Symptoms Discharge Data Primary Care Provider: Chace Montaño Discharges patient from system. Discharge Date/Time: 04/14/23 10:24 Quality VTE Deep Vein Thrombosis/Pulmonary Embolism Present on Admission: No
== END 2023-04-14 10:24 | disposition home or self-care (01) ==
LOC: ED 12:51 → AC 17:46
PROVIDERS: Admitting Provider Internal Medicine; Emergency Provider Emergency Medicine; PCP Family Medicine; Referring Provider Emergency Medicine; Visit Provider Internal Medicine
DX: D62 Acute posthemorrhagic anemia (principal); K92.2 Gastrointestinal hemorrhage, unspecified; E03.9 Hypothyroidism, unspecified; R06.02 Shortness of breath
CPT/HCPCS: 36415; 36430; 74177; 80048; 80053; 82550; 83605; 83880; 84484; 85025; 85610; 85730; 86850; 86900; 86901; 96374; 96376; 99232; 99285; G0378; P9016; C9113; Q9967

== ENCOUNTER 2023-04-15 10:27 | Day surgery (SDC) | payer MEDICARE, OTHER, SELFPAY ==
[2023-04-13 17:32] VITALS: BMI 32.7
--- NOTE | 2023-04-15 | PATH_ITS ---
[facility] Accession Number: [id number] No. of containers..01 Tissue . 01 Material submitted: . gastrointestinal site - ANTRUM BIOPSIES . 01 Diagnosis: Stomach, Antrum, Biopsies: Antral mucosa with mild chronic gastritis. Negative for Helicobacter by immunohistochemistry. Negative for intestinal metaplasia. Negative for dysplasia and malignancy. [facility] 04/22/2023 1559 Local . 01 Electronically signed: . Mar Brooke MD, Pathologist NPI- [id number] . 01 Gross description: . ANTRUM BIOPSIES: Received in formalin are 3 fragment(s) of huff, soft tissue measuring 0.1 x 0.1 x 0.1 cm to 0.4 x 0.4 x 0.2 cm submitted entirely in 1 cassette(s) /RAFAT 04/20/20232028 Local . 01 Microscopic: . An immunohistochemical stain was performed to evaluate for Helicobacter organisms and is negative. The control stain showed appropriate reactivity. . * This test was developed and its performance characteristics determined by [facility]. It has not been cleared or approved by the U.S. Food and Drug Administration. The FDA has determined that such clearance or approval is not necessary. This test is used for clinical purposes. It should not be regarded as investigational or for research. . 01 Pathologist provided ICD-10: D64.9 . 01 CPT . 065241, M79834 Specimen Comment: A courtesy copy of this report has been sent to [phone] Performed at: 01 [facility] Cytology [address] [place] [address] [address] [facility], [place], [place] [id number] MD Steven Zee MD Phone: [phone]
[2023-04-15 10:59] VITALS: BP 168/99; PULSE 81; RESP 17; TEMP 36.8; O2SAT 99; BMI 32.6
[2023-04-15] MEDS: LACTATED RINGERS 1,000 ML 120 ML IV (11:14)
--- NOTE | 2023-04-15 11:50 | PM.PREOP ---
Pre-operative Note COVID-19 COVID-19 status: Not tested Interval Note History & Physical reviewed/Exam performed by Physician: Yes Changes to H&P: No ASA Class (for procedural sedation): III
[2023-04-15 12:22] VITALS: BP 106/56; PULSE 74; RESP 16; TEMP 36.3; O2SAT 99
[2023-04-15 12:27] VITALS: BP 104/58; PULSE 77; RESP 14; O2SAT 96
--- NOTE | 2023-04-15 12:27 | PM.OP.EC ---
Operative Date/Time/Diagnoses Date of procedure: 04/15/23 Time of procedure: 12:27 Pre-op diagnosis: Anemia Post-op diagnosis: same Procedure & Clinicians Study performed: EGD and colonoscopy Same procedure as scheduled: Yes Surgeon: Orlando Ellis Procedure Notes Procedure in detail: Surgeon: Orlando Ellis MD Anesthesia: Valentine Johnson CRNA Procedure in detail: A timeout was performed. A bite blocked was placed and monitors were attached to the patient. The patient was positioned in a left lateral decubitus position. Sedation was administered by Valentine Johnson CRNA. Once the patient was sedated the endoscope was inserted through the bite block and passed through the esophagus and stomach and into the duodenum. No abnormalities were seen in the duodenum or bulb. We then withdrew the scope into the stomach. There was a small healing ulcer in the antrum. Random biopsies were taken from the antrum. The endoscope was retroflexed and no other abnormalities were seen. The endoscope was straightned and withdrawn into the esophagus. No other abnormalities were seen. Findings: Small, healing antral ulcer Next we repositioned the patient for a colonoscopy. A digital rectal exam was performed and was normal. The colonoscope was inserted and advanced to the cecum. The appendiceal orifice was identified and photographed. The scope was slowly withdrawn over greater than 6 minutes. No abnormalities were seen. The scope was retroflexed in the rectum and internal hemorrhoids were seen. Findings: Internal hemorrhoids EBL: 5 mL Scope withdrawal time: 7 minutes Sedation minutes: 22 minutes Post-procedure Disposition: PACU
[2023-04-15 12:32] VITALS: BP 106/56; PULSE 69; RESP 14; TEMP 36.3; O2SAT 97
== END 2023-04-15 13:01 | disposition home or self-care (01) ==
PROVIDERS: PCP Family Medicine; Referring Provider Surgery; Visit Provider Surgery
PROC: 0DJD8ZZ Inspection of Lower Intestinal Tract, Via Natural or Artificial Opening Endoscopic (ICD-10-PCS; CPT 45378; principal; 2023-04-15 12:00)
PROC: 0DJ08ZZ Inspection of Upper Intestinal Tract, Via Natural or Artificial Opening Endoscopic (ICD-10-PCS; CPT 43235; 2023-04-15 12:00)
DX: D64.9 Anemia, unspecified (principal); K64.8 Other hemorrhoids; K25.9 Gastric ulcer, unspecified as acute or chronic, without hemorrhage or perforation; K29.50 Unspecified chronic gastritis without bleeding
CPT/HCPCS: 45378; 43239; J2704

== ENCOUNTER → 2023-04-26 07:26 | Outpatient (CLI) | payer MEDICARE, OTHER, SELFPAY ==
[2023-04-13 17:32] VITALS: BMI 32.7
[2023-04-26 09:26] LABS: Basophils Absolute Auto 0 /uL (0-100); Basophils Percent Auto 0.5 % (0-2); Eosinophils Absolute Auto 200 /uL (0-450); Eosinophils Percent Auto 2.8 % (2-4); Hematocrit 30.5 % (41-53); Hemoglobin 9.5 g/dL (13.5-17.5); Lymphocytes Absolute Auto 2500 /uL (1100-4500); Lymphocytes Percent Auto 30.5 % (25-40); Mean Corpuscular Hemoglobin 22.1 PG (26-34); Mean Corpuscular Volume 71.2 fL (80-100); Monocytes Absolute Auto 800 /uL (0-900); Monocytes Percent Auto 9.6 % (3-14); Neutrophils Absolute Auto 4600 /uL (1500-7000); Neutrophils Percent Auto 56.6 % (50-75); Platelet Count 378 X10^3/uL (150-400); Red Blood Cell Count 4.29 X10^6/uL (4.5-5.9); Red Cell Distribution Width 27.3 % (11.6-14.8); White Blood Cell Count 8.1 X10^3/uL (4.5-11.0)
[2023-04-26 09:29] LABS: Add Manual Diff / Slide Review SLIDE REVIEW
[2023-04-26 09:57] LABS: Alanine Aminotransferase 16 IU/L (<50); Albumin 4.5 g/dL (3.5-5.0); Albumin Globulin Ratio 1.3 (1.0-2.8); Alkaline Phosphatase 64 U/L (38-126); Anisocytosis 2+; Aspartate Aminotransferase 25 IU/L (17-59); BUN Creatinine Ratio 20.2 (6-22); Bilirubin Total 0.3 mg/dL (0.2-1.3); Blood Urea Nitrogen 17 mg/dL (9-20); Calcium 9.3 mg/dL (8.4-10.2); Carbon Dioxide 27 mmol/L (22-32); Chloride 103 mmol/L (98-107); Cholesterol 191 mg/dL (140-199); Estimated Glomerular Filt Rate > 60 mL/min (>60); Globulin 3.5 g/dL (1.7-4.1); Glucose 99 mg/dL (80-110); HDL Cholesterol 34 mg/dL (40-60); HEMOLYSIS < 15 (0-50); Hypochromasia 1+; LDL Cholesterol Calculated 119 mg/dL (<100); Microcytosis 2+; Potassium 4.3 mmol/L (3.4-5.1); Sodium 138 mmol/L (137-145); Target Cells 1+; Triglycerides 191 mg/dL (35-150)
[2023-04-26 10:08] LABS: Free T4, Direct Thyroxine 1.14 ng/dL (0.78-2.19)
[2023-04-26 10:30] LABS: Prostate Specific Antigen Scrn < 0.064 ng/mL (0.1-4.0)
== END ==
PROVIDERS: PCP Family Medicine; Referring Provider Family Medicine; Visit Provider Family Medicine
DX: Z00.00 Encounter for general adult medical examination without abnormal findings (principal); E03.9 Hypothyroidism, unspecified; Z12.5 Encounter for screening for malignant neoplasm of prostate; E78.5 Hyperlipidemia, unspecified
CPT/HCPCS: 36415; 80053; 80061; 84439; 84443; 85025; G0103

== ENCOUNTER → 2023-05-12 07:46 | Outpatient (CLI) | payer MEDICARE, OTHER, SELFPAY ==
[2023-04-13 17:32] VITALS: BMI 32.7
[2023-05-12 08:47] LABS: Add Manual Diff / Slide Review NO; Basophils Absolute Auto 0 /uL (0-100); Basophils Percent Auto 0.5 % (0-2); Eosinophils Absolute Auto 200 /uL (0-450); Eosinophils Percent Auto 3.7 % (2-4); Hematocrit 35.4 % (41-53); Hemoglobin 11.2 g/dL (13.5-17.5); Lymphocytes Absolute Auto 1900 /uL (1100-4500); Lymphocytes Percent Auto 31.3 % (25-40); Mean Corpuscular HGB Conc 31.7 % (30-36); Mean Corpuscular Hemoglobin 24.4 PG (26-34); Mean Corpuscular Volume 77.1 fL (80-100); Monocytes Absolute Auto 700 /uL (0-900); Monocytes Percent Auto 11.2 % (3-14); Neutrophils Absolute Auto 3300 /uL (1500-7000); Neutrophils Percent Auto 53.3 % (50-75); Platelet Count 297 X10^3/uL (150-400); Red Blood Cell Count 4.59 X10^6/uL (4.5-5.9); Red Cell Distribution Width 30.7 % (11.6-14.8); White Blood Cell Count 6.1 X10^3/uL (4.5-11.0)
[2023-05-12 09:01] LABS: RBC Morphology See
[2023-05-12 09:02] LABS: Anisocytosis 2+; Microcytosis 1+
== END ==
PROVIDERS: PCP Family Medicine; Referring Provider Surgery; Visit Provider Surgery
DX: D64.9 Anemia, unspecified (principal)
CPT/HCPCS: 36415; 85025

== ENCOUNTER → 2023-09-03 09:00 | Outpatient (CLI) | payer MEDICARE, OTHER, SELFPAY ==
[2023-04-13 17:32] VITALS: BMI 32.7
[2023-09-03 10:44] LABS: Hematocrit 44.8 % (41-53); Hemoglobin 15.3 g/dL (13.5-17.5); Mean Corpuscular HGB Conc 34.1 % (30-36); Mean Corpuscular Hemoglobin 30.2 PG (26-34); Mean Corpuscular Volume 88.6 fL (80-100); Platelet Count 256 X10^3/uL (150-400); Red Blood Cell Count 5.06 X10^6/uL (4.5-5.9); Red Cell Distribution Width 17.3 % (11.6-14.8); White Blood Cell Count 7.8 X10^3/uL (4.5-11.0)
[2023-09-03 11:25] LABS: Alanine Aminotransferase 19 IU/L (<50); Albumin 4.7 g/dL (3.5-5.0); Albumin Globulin Ratio 1.5 (1.0-2.8); Alkaline Phosphatase 60 U/L (38-126); Aspartate Aminotransferase 28 IU/L (17-59); BUN Creatinine Ratio 14.1 (6-22); Bilirubin Total 0.8 mg/dL (0.2-1.3); Blood Urea Nitrogen 12 mg/dL (9-20); Calcium 10.3 mg/dL (8.4-10.2); Carbon Dioxide 29 mmol/L (22-32); Chloride 99 mmol/L (98-107); Estimated Glomerular Filt Rate > 60 mL/min (>60); Globulin 3.2 g/dL (1.7-4.1); Glucose 90 mg/dL (80-110); HEMOLYSIS < 15 (0-50); Iron 163 ug/dL (49-181); Potassium 4.5 mmol/L (3.4-5.1); Sodium 136 mmol/L (137-145); Total Protein 7.9 g/dL (6.3-8.2)
[2023-09-03 11:41] LABS: Percent Iron Saturation 50 % (20-50); Total Iron Binding Capacity 328 ug/dL (261-462); Transferrin 262 mg/dL (206-381)
[2023-09-03 11:51] LABS: Ferritin 22 ng/mL (18-464)
== END ==
PROVIDERS: PCP Family Medicine; Referring Provider Family Medicine; Visit Provider Family Medicine
DX: K92.2 Gastrointestinal hemorrhage, unspecified (principal); K64.8 Other hemorrhoids; D62 Acute posthemorrhagic anemia; I10 Essential (primary) hypertension; E78.5 Hyperlipidemia, unspecified
CPT/HCPCS: 36415; 80053; 82728; 83540; 83550; 85027

== ENCOUNTER 2024-01-06 12:00 | Day surgery (SDC) | payer MEDICARE, OTHER, SELFPAY ==
[2023-04-13 17:32] VITALS: BMI 32.7
--- NOTE | 2024-01-06 | PATH_ITS ---
[facility] Accession Number: [id number] No. of containers..02 Tissue . 01 Material submitted: . PART A: duodenum - DUODENUM PART B: gastrointestinal site - ANTRUM . 01 Diagnosis: A. DUODENUM, BIOPSY: Duodenal mucosa with no diagnostic abnormality. Negative for active inflammation, features of sprue, dysplasia, or malignancy. . B. ANTRUM, BIOPSY: Gastric mucosa with mild chronic inflammation. No Helicobacter pylori organisms identified on immunohistochemical evaluation. No intestinal metaplasia, dysplasia, or malignancy. [facility] 01/12/2024 1642 Local . 01 Electronically signed: . Kayla Caldwell MD, Pathologist NPI- [id number] . 01 Gross description: . Part A: DUODENUM: Received in formalin are 2 fragment(s) of huff, soft tissue measuring 0.2 x 0.2 x 0.2 cm to 0.4 x 0.2 x 0.2 cm submitted entirely in 1 cassette(s) Part B: ANTRUM: Received in formalin are 4 fragment(s) of huff, soft tissue measuring 0.1 x 0.1 x 0.1 cm to 0.4 x 0.3 x 0.2 cm submitted entirely in 1 cassette(s) /RAFAT 01/11/2024 0122 Local . 01 Microscopic: . B. An immunohistochemical stain was performed to evaluate for Helicobacter organisms and is negative. The control stain showed appropriate reactivity. . * This test was developed and its performance characteristics determined by [facility]. It has not been cleared or approved by the U.S. Food and Drug Administration. The FDA has determined that such clearance or approval is not necessary. This test is used for clinical purposes. It should not be regarded as investigational or for research. . 01 Pathologist provided ICD-10: K29.70 . 01 CPT . 396737, 002516, Q89984 Specimen Comment: A courtesy copy of this report has been sent to [phone] Performed at: 01 [facility] [address] [place] [id number] MD Steven Zee MD Phone: [phone]
[2024-01-06 12:26] VITALS: PULSE 78; RESP 16; TEMP 36.9; O2SAT 98
--- NOTE | 2024-01-06 12:45 | PM.PREOP ---
Pre-operative Note COVID-19 COVID-19 status: Not tested Interval Note History & Physical reviewed/Exam performed by Physician: Yes Changes to H&P: No ASA Class (for procedural sedation): II
[2024-01-06 12:49] VITALS: BP 189/99; PULSE 74; RESP 18; TEMP 36.7; O2SAT 97
[2024-01-06] MEDS: LACTATED RINGERS 1,000 ML 100 ML IV (12:52)
--- NOTE | 2024-01-06 13:09 | PM.OP.EGD ---
Operative Date/Time/Diagnoses Date of procedure: 01/06/24 Time of procedure: 13:09 Pre-op diagnosis: Hematochezia Post-op diagnosis: same Procedure & Clinicians Study performed: Esophagogastroduodenoscopy Same procedure as scheduled: Yes Surgeon: Orlando Ellis Procedure Notes Procedure in detail: Surgeon: Orlando Ellis MD Anesthesia: Zane Sumner DO A timeout was performed. A bite blocked was placed. The patient was positioned in the left lateral decubitus position. Anesthesia was administered. The endoscope was inserted through the bite block and passed through the esophagus and stomach and into the duodenum. There was some mild duodenitis and random biopsies were taken from the duodenal mucosa with cold forceps. The scope was withdrawn into the stomach. There was some mild antritis and random biopsies were taken from the antrum with cold forceps. There were no ulcers or evidence of recent bleeding. The rest of the stomach was normal. The scope was retroflexed and no other abnormalities were seen.. The scope was withdrawn into the esophagus and no abnormalities were seen. The remainder of the esophagus was normal. The scope was withdrawn. The patient was awakened and brought to recovery. Sedation time: 5 minutes Findings: Mild duodenitis and antritis Post-procedure Disposition: PACU
[2024-01-06 13:10] VITALS: BP 139/105; PULSE 63; RESP 19; TEMP 37.2; O2SAT 97
[2024-01-06 13:15] VITALS: BP 135/90; PULSE 65; RESP 18; TEMP 37.2; O2SAT 98
[2024-01-06 13:21] VITALS: BP 136/89; PULSE 58; RESP 14; TEMP 37.2; O2SAT 98
== END 2024-01-06 13:32 | disposition home or self-care (01) ==
PROVIDERS: PCP Internal Medicine; Referring Provider Surgery; Visit Provider Surgery
PROC: 0DJ08ZZ Inspection of Upper Intestinal Tract, Via Natural or Artificial Opening Endoscopic (ICD-10-PCS; CPT 43235; principal; 2024-01-06 13:00)
DX: K92.1 Melena (principal); K29.80 Duodenitis without bleeding; K29.50 Unspecified chronic gastritis without bleeding
CPT/HCPCS: 43239; J2704

== ENCOUNTER → 2024-09-27 09:06 | Outpatient (CLI) | payer MEDICARE, OTHER, SELFPAY ==
[2023-04-13 17:32] VITALS: BMI 32.7
[2024-09-27 11:22] LABS: Cholesterol 195 mg/dL (140-199); HDL Cholesterol 48 mg/dL (40-60); LDL Cholesterol Calculated 114 mg/dL (<100); Triglycerides 164 mg/dL (35-150)
== END ==
PROVIDERS: PCP Internal Medicine; Referring Provider Nurse Practitioner Acute Care; Visit Provider Nurse Practitioner Acute Care
DX: E78.5 Hyperlipidemia, unspecified (principal)
CPT/HCPCS: 36415; 80061

== ENCOUNTER → 2025-02-13 14:20 | Outpatient (CLI) | payer MEDICARE, OTHER, SELFPAY ==
[2023-04-13 17:32] VITALS: BMI 32.7
--- NOTE | 2025-02-13 14:24 | DI.US.S_ITS ---
PROCEDURE: US SOFT TISSUE HEAD AND NECK INDICATIONS: LEFT SUPRACLAVICULAR LUMP TECHNIQUE: Real-time scanning was performed of the neck region of interest, with image documentation. COMPARISON: None. FINDINGS AND IMPRESSION: In the left neck area of concern, no discrete mass or fluid collections identified. Clinical followup is recommended. If there is new or worsening clinical concern, reimaging could be obtained. Dictated by: Rocky Walls M.D. on 02/14/2025 at 9:37 Approved by: Rocky Walls M.D. on 02/14/2025 at 9:38
[2025-02-13 14:44] LABS: Add Manual Diff / Slide Review NO; Basophils Absolute Auto 100 /uL (0-100); Basophils Percent Auto 0.8 % (0-2); Eosinophils Absolute Auto 300 /uL (0-450); Hematocrit 37.3 % (41-53); Hemoglobin 12.2 g/dL (13.5-17.5); Lymphocytes Absolute Auto 2200 /uL (1100-4500); Lymphocytes Percent Auto 33.7 % (25-40); Mean Corpuscular HGB Conc 32.6 % (30-36); Mean Corpuscular Hemoglobin 29.1 PG (26-34); Mean Corpuscular Volume 89.4 fL (80-100); Monocytes Absolute Auto 600 /uL (0-900); Monocytes Percent Auto 9.5 % (3-14); Neutrophils Absolute Auto 3400 /uL (1500-7000); Platelet Count 292 X10^3/uL (150-400); Red Blood Cell Count 4.18 X10^6/uL (4.5-5.9); Red Cell Distribution Width 15.2 % (11.6-14.8); White Blood Cell Count 6.5 X10^3/uL (4.5-11.0)
[2025-02-13 15:21] LABS: Monotest Negative (Negative)
== END ==
PROVIDERS: PCP Internal Medicine; Referring Provider Internal Medicine; Visit Provider Internal Medicine
DX: R59.0 Localized enlarged lymph nodes (principal)
CPT/HCPCS: 36415; 76536; 85025; 86318